=== PATIENT | female | born 1970 | race Caucasian/White ===

== ENCOUNTER → 2017-06-28 12:26 | Outpatient (CLI) | payer BC, SELFPAY ==
[2017-07-04 14:21] LABS: HPV APTIMA, High Risk Negative (Negative)
== END ==
PROVIDERS: Visit Provider Nurse Practitioner Women's Health
DX: Z12.4 Encounter for screening for malignant neoplasm of cervix (principal)
CPT/HCPCS: 88175; G0145

== ENCOUNTER → 2017-07-11 09:35 | Outpatient (CLI) | payer BC, SELFPAY ==
[2017-07-11 11:14] LABS: Cholesterol 208 mg/dL (200); Glucose 85 mg/dL (74-106); High Density Lipoprotein 74 mg/dL; Triglycerides 135 mg/dL; Very Low Density Lipoprotein 27 mg/dL (5-40)
[2017-07-13 14:34] LABS: Vitamin D 1,25-Dihydroxy 56.6 pg/mL (19.9-79.3)
== END ==
PROVIDERS: Visit Provider Nurse Practitioner Women's Health
DX: Z00.00 Encounter for general adult medical examination without abnormal findings (principal); R68.89 Other general symptoms and signs; N92.6 Irregular menstruation, unspecified; R53.83 Other fatigue
CPT/HCPCS: 36415; 80061; 82652; 82947; 84443

== ENCOUNTER → 2018-09-11 | Outpatient (CLI) | payer BC, SELFPAY ==
[2018-09-14 14:06] LABS: HPV Reflexed? NOT INDICATED
== END | disposition home or self-care (01) ==
PROVIDERS: Visit Provider Obstetrics & Gynecology
DX: Z12.4 Encounter for screening for malignant neoplasm of cervix (principal)
CPT/HCPCS: 88175; G0145